=== PATIENT | female | born 1990 | race Caucasian/White ===

== ENCOUNTER 2019-09-07 14:35 | Inpatient (IN) ==
[2019-09-07 14:14] LABS: Basophils % 0.4 %; Eosinophils % 0.4 %; Hematocrit 34.4 % (35.3-44.9); Hemoglobin 10.6 g/dL (11.5-15.4); Immature Granulocytes % 0.9 % (0-4); Lymphocytes # 1.5 K/mcL (0.6-4.6); Lymphocytes % 19.2 %; Mean Corpuscular HGB Conc 30.8 g/dL (31.6-35.5); Mean Corpuscular Hemoglobin 24.3 pg (28.0-33.3); Mean Corpuscular Volume 78.7 fL (83.0-100.0); Mean Platelet Volume 10.1 fL (9.4-12.4); Monocytes # 0.6 K/mcL (0.0-1.3); Monocytes % 7.4 %; Neutrophils # 5.7 K/mcL (1.6-8.9); Platelet Count 396 K/mcL (140-400); Red Blood Count 4.37 M/mcL (3.82-4.97); Red Cell Distribution Width 14.6 % (11.5-14.5); Segmented Neutrophils % 71.7 %; White Blood Count 7.9 K/mcL (4.3-11.1)
[2019-09-07 14:18] LABS: Amphetamine Screen,Urine Negative ng/mL (Cutoff=1000); Barbiturate Screen,Urine Negative ng/mL (Cutoff=200); Benzodiazepines Screen,Urine Negative ng/mL (Cutoff=200); Cannabinoid Screen,Urine Negative ng/mL (Cutoff = 50); Cocaine Screen,Urine Negative ng/mL (Cutoff= 300); Opiate Screen,Urine Negative ng/mL (Cutoff=300); Phencyclidine Screen,Urine Negative ng/mL (Cutoff=25)
[~2019-09-07 14:35] MED LIST: *HR* FentaNYL (PF) 100 MCG/2 ML VIAL ONE; *HR* HYDROmorphone (PF) 1 MG/ML SYRINGE IVP PRN; *HR* Morphine Sulfate/PF 10 MG/10 ML AMPUL ONE; *HR* OxyCODONE Immed Rel 5 MG TABLET PO PRN; *HR* Oxytocin 10 UNIT/ML VIAL IM ONE; *HR* Promethazine 25 MG/ML VIAL IVP PRN; CeFAZolin Premix DUPLEX 2,000 MG/50 ML BAG IVPB ONE; EPHEDrine 50 MG/ML VIAL ONE; Famotidine 20 MG/2 ML VIAL IVP ONE; Ketorolac 30 MG/ML VIAL IVP ONE; Metoclopramide 10 MG/2 ML VIAL IVP ONE; Ondansetron 4 MG/2 ML VIAL IVP ONE; Ondansetron 4 MG/2 ML VIAL ONE; Oxytocin 20 units/ LR 1000 mL 20 UNIT/1,000 ML BAG IVC ONE; Oxytocin 20 units/ LR 1000 mL 20 UNIT/1,000 ML BAG IVC SCH; Ringers Solution, Lactated 1,000 ML IVC ONE; Ringers Solution, Lactated 1,000 ML IVC SCH; Ringers Solution, Lactated 1,000 ML ONE
[2019-09-07] MEDS ORDERED: Terbutaline 1 MG/ML VIAL SQ ONE (14:48)
[2019-09-07] MEDS ORDERED: Ringers Solution, Lactated 1,000 ML ONE (16:58)
[2019-09-07] MEDS ORDERED: Metoclopramide 10 MG/2 ML VIAL IVP PRN (21:12)
[2019-09-07] MEDS ORDERED: Ondansetron 4 MG/2 ML VIAL IVP PRN (21:12)
[2019-09-07] MEDS ORDERED: Oxytocin 20 units/ LR 1000 mL 20 UNIT/1,000 ML BAG IVC SCH (21:12)
[2019-09-07] MEDS ORDERED: Ringers Solution, Lactated 1,000 ML IVC SCH (21:12)
[2019-09-07] MEDS ORDERED: Sennosides 8.6 MG TABLET PO PRN (21:12)
[2019-09-07] MEDS ORDERED: Simethicone 80 MG TAB.CHEW PO PRN (21:12)
[2019-09-07] MEDS ORDERED: *HR* OxyCODONE/APAP 10/325 TABLET PO PRN (21:12)
[2019-09-07] MEDS ORDERED: Rho Immune Globulin 1,500 UNIT SYRINGE IM ONE (21:12)
[2019-09-07] MEDS ORDERED: *HR* Nalbuphine 10 MG/ML AMPUL IV PRN (21:19)
[2019-09-07] MEDS: cephALEXin 500 MG CAPSULE PO SCH (22:17)
[2019-09-07] MEDS: metroNIDAZOLE 500 MG TABLET PO SCH (22:18)
[2019-09-08] MEDS: Ibuprofen 600 MG TABLET PO PRN ×3 (05:51→21:12)
[2019-09-08] MEDS: *HR* OxyCODONE/APAP 5/325 TABLET PO PRN ×2 (05:51→13:48)
[2019-09-08 07:03] LABS: Basophils % 0.2 %; Eosinophils % 0.4 %; Hemoglobin 9.5 g/dL (11.5-15.4); Immature Granulocytes % 0.8 % (0-4); Lymphocytes # 1.9 K/mcL (0.6-4.6); Lymphocytes % 22.3 %; Mean Corpuscular HGB Conc 31.7 g/dL (31.6-35.5); Mean Corpuscular Volume 78.9 fL (83.0-100.0); Monocytes # 0.6 K/mcL (0.0-1.3); Monocytes % 7.3 %; Neutrophils # 5.8 K/mcL (1.6-8.9); Platelet Count 273 K/mcL (140-400); Red Cell Distribution Width 14.8 % (11.5-14.5); White Blood Count 8.5 K/mcL (4.3-11.1)
[2019-09-08] MEDS: cephALEXin 500 MG CAPSULE PO SCH ×3 (09:42→21:12)
[2019-09-08] MEDS: metroNIDAZOLE 500 MG TABLET PO SCH ×3 (09:42→21:13)
[2019-09-08] MEDS: Prenatal Vit/FA 1 EACH TABLET PO SCH (09:42)
[2019-09-08] MEDS ORDERED: Rho Immune Globulin 1,500 UNIT SYRINGE IM ONE (17:36)
[2019-09-09] MEDS: Ibuprofen 600 MG TABLET PO PRN ×3 (05:26→21:54)
[2019-09-09] MEDS: *HR* OxyCODONE/APAP 5/325 TABLET PO PRN ×3 (05:26→21:53)
[2019-09-09] MEDS: cephALEXin 500 MG CAPSULE PO SCH ×2 (07:18→13:17)
[2019-09-09] MEDS: metroNIDAZOLE 500 MG TABLET PO SCH ×2 (07:18→13:16)
[2019-09-09] MEDS: Prenatal Vit/FA 1 EACH TABLET PO SCH (07:18)
[2019-09-10] MEDS: Ibuprofen 600 MG TABLET PO PRN (04:05)
[2019-09-10 08:03] VITALS: BP 104/68
[2019-09-10] MEDS: *HR* OxyCODONE/APAP 5/325 TABLET PO PRN (10:57)
[2019-09-10] MEDS: Prenatal Vit/FA 1 EACH TABLET PO SCH (10:57)
[2019-09-10 11:17] LABS: Bilirubin,Urine Small (Negative); Blood,Urine Negative (Negative); Clarity,Urine Clear (Clear); Color,Urine Dark Yellow (Yellow); Glucose,Urine (UA) Normal (Normal); Ketones,Urine Negative (Negative); Leukocyte Esterase,Urine Negative (Negative); Nitrite,Urine Negative (Negative); PH,Urine 6.5 pH Units (5.0-8.0); Protein,Urine Trace mg/dL (Neg-Trace); Urobilinogen,Urine Normal (Normal)
== END 2019-09-10 14:19 | disposition home or self-care (01) | DRG 785 ==
LOC: 1NENULAB → 1NENUOBS 20:15
PROVIDERS: ADMIT Obstetrics & Gynecology; ATTEND Obstetrics & Gynecology